=== PATIENT | female | born 1980 | race African-American/Black ===

== ENCOUNTER 2024-04-19 20:07 | Emergency (ER) | payer MEDICAID ==
[~2024-04-19] VITALS: Ht 167.6 cm; Wt 111.8 kg
[2024-04-19 20:10] VITALS: TEMP 97.9; O2SAT 100
[2024-04-19 20:45] LABS: CLARITY URINE CLOUDY (CLEAR); COLOR URINE YELLOW (YELLOW); GLUCOSE URINE NEGATIVE (NEGATIVE); KETONES URINE NEGATIVE (NEGATIVE); LEUKOCYTE ESTERASE URINE NEGATIVE (NEGATIVE); NITRITE URINE NEGATIVE (NEGATIVE); OCCULT BLOOD URINE NEGATIVE (NEGATIVE); PH URINE 5.5 (4.5-8.0); PROTEIN URINE NEGATIVE (NEGATIVE)
[2024-04-19 20:46] LABS: HEMATOCRIT 38.7 % (36.0-48.0); HEMOGLOBIN 13.4 g/dL (12.0-16.0); MEAN CORPUSCULAR HEMOGLOBIN 33.9 pg (28.0-32.0); MEAN CORPUSCULAR HGB CONC 34.7 g/dL (31.0-37.0); MEAN CORPUSCULAR VOLUME 97.7 fL (81.0-99.0); PLATELET 286 x1000/uL (130-400); RED BLOOD CELL COUNT 3.96 mill/uL (4.2-5.4); RED CELL DISTRIBUTION WIDTH 13.2 % (11.6-14.6); WHITE BLOOD COUNT 8.6 x1000/uL (4.5-11.0)
[2024-04-19 20:51] LABS: RBC URINE NONE SEEN /hpf (0-2); SQUAMOUS EPITHELIAL CELL URINE FEW /lpf (RARE/1+); WBC URINE NONE SEEN /hpf (0-2)
[2024-04-19 20:51] LABS: CHLORIDE 105 mEq/L (98-107); POTASSIUM 3.8 mEq/L (3.5-5.1); SODIUM 137 mEq/L (136-145)
[2024-04-19 20:52] LABS: BACTERIA URINE TRACE
[2024-04-19 20:53] LABS: CALCIUM 8.9 mg/dL (8.7-10.4); CARBON DIOXIDE 26 mEq/L (21-32)
[2024-04-19 20:58] LABS: CREATININE 0.8 mg/dL (0.6-1.0); GLUCOSE 89 mg/dL (70-105); UREA NITROGEN BLOOD 6 mg/dL (9-23)
[2024-04-19 22:04] LABS: HCG SCREEN NEGATIVE
[2024-04-20] MEDS ORDERED: KETOROLAC 60MG/2ML VIAL IM ONE (00:30)
[2024-04-20 00:55] VITALS: BP 138/63; PULSE 54; RESP 16
[2024-04-20] MEDS: KETOROLAC 30MG/ML VIAL IM NR (00:55)
[2024-04-20] MEDS ORDERED: IOHEXOL-300 100 ML BOTTLE ONE (02:24)
[2024-04-20] MEDS ORDERED: POLY119P3 PO (02:29)
[2024-04-20] MEDS ORDERED: NAPR-681 MT (02:29)
== END 2024-04-20 02:37 | disposition home or self-care (01) ==
LOC: ER 20:07
DX: R10.32 Left lower quadrant pain (principal); R11.0 Nausea
CPT/HCPCS: 80048; 81003; 81025; 84703; 85027; 36415; 71045; 99285; 74177; 96372; Z7610 ×3; Q9967; J1885